=== PATIENT | female | born 1995 | race American Indian/Alaskan Native ===

== ENCOUNTER 2020-06-28 10:20 | Outpatient (CLI) | payer OTHER ==
[2020-06-28 11:05] VITALS: BP 135/81
== END 2020-06-28 12:00 | disposition home or self-care (01) ==
LOC: TRG 10:20 → APU 10:21 → TRG 12:00
PROVIDERS: ATTEND Obstetrics & Gynecology
DX: O47.1 False labor at or after 37 completed weeks of gestation (principal); Z3A.39 39 weeks gestation of pregnancy
CPT/HCPCS: 59025

== ENCOUNTER 2020-06-29 00:55 | Inpatient (IN) | payer OTHER ==
[2020-06-29] MEDS ORDERED: LIDOCAINE (2%) 20 MG/1 ML VIAL 20 ML MDV INFILTRATI ONE (03:29)
[2020-06-29] MEDS ORDERED: AMPICILLIN/NS 2 GM/100 ML 2 GM/100 ML BAG IV ONE (03:29)
[2020-06-29] MEDS ORDERED: BUTORPHANOL 2 MG/1 ML INJ IV PRN (03:29)
[2020-06-29] MEDS ORDERED: MINERAL OIL 30 ML ORAL LIQD PO PRN (03:29)
[2020-06-29] MEDS ORDERED: ONDANSETRON 4 MG/2 ML INJ IV PRN ×2 (03:29→16:36)
[2020-06-29] MEDS ORDERED: ePHEDrine SULFATE 50 MG/1 ML INJ IV PRN ×2 (03:29→08:30)
[2020-06-29] MEDS ORDERED: TERBUTALINE 1 MG/1 ML INJ SUB-Q PRN (03:29)
[2020-06-29] MEDS ORDERED: OXYTOCIN DRIP 30 UNITS/500 ML BAG IV SCH ×2 (04:00→17:00)
[2020-06-29] MEDS: LACTATED RINGERS 1,000 ML IV SCH ×2 (04:45→12:45)
[2020-06-29 05:04] LABS: Hematocrit 31.6 % (30.3-42.9); Hemoglobin 10.2 gm/dl (10.1-14.3); Mean Corpuscular HGB Conc 32 % (30-34); Mean Corpuscular Volume 80 fl (79-97); Platelet Count 155 K/mm3 (140-440); Red Blood Count 3.96 M/mm3 (3.65-5.03); Red Cell Distribution Width 17.1 % (13.2-15.2)
--- NOTE | 2020-06-29 08:05 | Anesthesia Consultation ---
Anesthesia Consult and Med Hx Date of service: 06/29/20 - Airway Anesthetic Teeth Evaluation: Good ROM Head & Neck: Adequate Mental/Hyoid Distance: Adequate Mallampati Class: Class II Intubation Access Assessment: Probably Good - Pulmonary Exam CTA: Yes - Cardiac Exam Cardiac Exam: RRR - Pre-Operative Health Status ASA Pre-Surgery Classification: ASA3 Proposed Anesthetic Plan: Epidural - Pulmonary Hx Asthma: No - Cardiovascular System Hx Hypertension: No - Central Nervous System Hx Seizures: No Hx Psychiatric Problems: No - Endocrine Hx Renal Disease: No Hx Non-Insulin Dependent Diabetes: Yes Hx Hypothyroidism: No Hx Hyperthyroidism: No - Hematic Hx Anemia: No Hx Sickle Cell Disease: No - Other Systems Hx Alcohol Use: No Hx Obesity: Yes
--- NOTE | 2020-06-29 08:11 | Progress Note ---
Labor Epidural - Labor Epidural Start Time: 07:45 Stop Time: 08:01 Performed by:: FLACO SONG Procedure: Patient is requesting epidural for labor pain. H&P, and labs reviewed. Procedure explained, questions answered, consent obtained. Patient in sitting position with blood pressure cuff and pulse ox on and working. Timeout performed immediately before start of procedure. Sterile betadine prep/drape. 3 mL 1% lidocaine skin wheal at L[3]-L[4]. 18-gauge Flipzu epidural needle advanced to [id number] with saline at 8 cm. Positive csf, dexmedetomidine 5 mcg administered, positive test dose for leg numbness. Epidural catheter advanced to [12] cm. RN instructed IT catheter and appropriate dosing. Sterile steri-strips and tegaderm applied, followed by tape reinforcement. Patient tolerated procedure well. Zaki ALCANTAR
[2020-06-29] MEDS ORDERED: NALOXONE 2 MG/2 ML INJ IV PRN (08:30)
[2020-06-29] MEDS: AMPICILLIN/NS 1 GM/50 ML 1 GM/50 ML BAG IV SCH ×2 (08:38→13:03)
[2020-06-29] MEDS ORDERED: fentaNYL-BUPIV 2 MCG/ML-0.125% 200 MCG/100 ML BAG EPIDURAL SCH (09:00)
--- NOTE | 2020-06-29 11:57 | Progress Note ---
Assessment and Plan A: IUP@39.5 wks GBS pos P: Cont monitoring Anticipate - Patient Problems (1) Term Current Visit: Yes Status: Acute (2) Positive GBS test Current Visit: Yes Status: Acute Subjective - Subjective Date of service: 06/29/20 Patient reports: movement normal Objective - Vital Signs Vital Signs: Vital Signs - 12hr 06/29/20 06/29/20 06/29/20 01:22 01:24 01:32 Temperature 98.7 F Pulse Rate 118 H 118 H 124 H Respiratory 18 Rate Blood Pressure 142/94 147/93 Blood Pressure 147/93 [Left] O2 Sat by Pulse 99 99 Oximetry 06/29/20 06/29/20 06/29/20 01:37 01:42 01:47 Temperature Pulse Rate 117 H 125 H 128 H Respiratory Rate Blood Pressure Blood Pressure [Left] O2 Sat by Pulse 99 99 99 Oximetry 06/29/20 06/29/20 06/29/20 01:52 04:16 04:21 Temperature Pulse Rate 121 H 102 H 111 H Respiratory Rate Blood Pressure 126/70 Blood Pressure [Left] O2 Sat by Pulse 98 100 99 Oximetry 06/29/20 06/29/20 06/29/20 04:26 04:31 04:36 Temperature Pulse Rate 117 H 126 H 117 H Respiratory Rate Blood Pressure Blood Pressure [Left] O2 Sat by Pulse 99 99 99 Oximetry 06/29/20 06/29/20 06/29/20 04:41 04:45 04:46 Temperature 97.9 F Pulse Rate 122 H 122 H Respiratory Rate Blood Pressure Blood Pressure [Left] O2 Sat by Pulse 99 100 Oximetry 06/29/20 06/29/20 06/29/20 04:51 04:56 05:01 Temperature Pulse Rate 109 H 105 H 101 H Respiratory Rate Blood Pressure Blood Pressure [Left] O2 Sat by Pulse 97 97 98 Oximetry 06/29/20 06/29/20 06/29/20 05:06 05:11 05:16 Temperature Pulse Rate 90 96 H 97 H Respiratory Rate Blood Pressure Blood Pressure [Left] O2 Sat by Pulse 97 99 99 Oximetry 06/29/20 06/29/20 06/29/20 05:21 05:26 05:31 Temperature Pulse Rate 108 H 97 H 96 H Respiratory Rate Blood Pressure Blood Pressure [Left] O2 Sat by Pulse 99 99 98 Oximetry 06/29/20 06/29/20 06/29/20 05:36 05:41 05:48 Temperature Pulse Rate 97 H 88 113 H Respiratory Rate Blood Pressure Blood Pressure [Left] O2 Sat by Pulse 96 99 98 Oximetry 06/29/20 06/29/20 06/29/20 05:53 05:56 05:58 Temperature Pulse Rate 101 H 81 78 Respiratory Rate Blood Pressure Blood Pressure [Left] O2 Sat by Pulse 96 94 96 Oximetry 06/29/20 06/29/20 06/29/20 06:03 06:08 06:13 Temperature Pulse Rate 109 H 117 H 101 H Respiratory Rate Blood Pressure Blood Pressure [Left] O2 Sat by Pulse 96 99 99 Oximetry 06/29/20 06/29/20 06/29/20 06:18 06:23 06:28 Temperature Pulse Rate 91 H 81 75 Respiratory Rate Blood Pressure Blood Pressure [Left] O2 Sat by Pulse 98 97 97 Oximetry 06/29/20 06/29/20 06/29/20 06:33 06:38 06:43 Temperature Pulse Rate 98 H 115 H 77 Respiratory Rate Blood Pressure Blood Pressure [Left] O2 Sat by Pulse 97 97 98 Oximetry 06/29/20 06/29/20 06/29/20 06:48 06:53 06:58 Temperature Pulse Rate 82 78 82 Respiratory Rate Blood Pressure Blood Pressure [Left] O2 Sat by Pulse 98 98 98 Oximetry 06/29/20 06/29/20 06/29/20 07:03 07:08 07:13 Temperature Pulse Rate 84 89 104 H Respiratory Rate Blood Pressure Blood Pressure [Left] O2 Sat by Pulse 97 98 99 Oximetry 06/29/20 06/29/20 06/29/20 07:18 07:23 07:28 Temperature Pulse Rate 116 H 89 117 H Respiratory Rate Blood Pressure Blood Pressure [Left] O2 Sat by Pulse 100 98 98 Oximetry 06/29/20 06/29/20 06/29/20 07:33 07:38 07:43 Temperature Pulse Rate 96 H 111 H 115 H Respiratory Rate Blood Pressure 146/90 Blood Pressure [Left] O2 Sat by Pulse 97 98 97 Oximetry 06/29/20 06/29/20 06/29/20 07:48 07:52 07:53 Temperature Pulse Rate 96 H 103 H 107 H Respiratory Rate Blood Pressure Blood Pressure [Left] O2 Sat by Pulse 98 0 L 99 Oximetry 06/29/20 06/29/20 06/29/20 07:58 08:00 08:03 Temperature Pulse Rate 108 H 108 H 113 H Respiratory Rate Blood Pressure 129/81 121/75 Blood Pressure [Left] O2 Sat by Pulse 98 99 Oximetry 06/29/20 06/29/20 06/29/20 08:06 08:08 08:09 Temperature Pulse Rate 105 H 103 H 100 H Respiratory Rate Blood Pressure 128/77 108/56 Blood Pressure [Left] O2 Sat by Pulse 99 Oximetry 06/29/20 06/29/20 06/29/20 08:12 08:13 08:15 Temperature Pulse Rate 80 76 69 Respiratory Rate Blood Pressure 103/56 103/57 Blood Pressure [Left] O2 Sat by Pulse 97 Oximetry 06/29/20 06/29/20 06/29/20 08:18 08:21 08:23 Temperature Pulse Rate 78 77 91 H Respiratory Rate Blood Pressure 93/52 100/58 Blood Pressure [Left] O2 Sat by Pulse 100 100 Oximetry 06/29/20 06/29/20 06/29/20 08:24 08:27 08:28 Temperature Pulse Rate 148 H 81 75 Respiratory Rate Blood Pressure 115/54 108/61 Blood Pressure [Left] O2 Sat by Pulse 100 Oximetry 06/29/20 06/29/20 06/29/20 08:30 08:33 08:36 Temperature 97.7 F Pulse Rate 76 73 75 Respiratory 20 Rate Blood Pressure 110/63 115/72 113/69 Blood Pressure [Left] O2 Sat by Pulse 99 100 Oximetry 06/29/20 06/29/20 06/29/20 08:38 08:39 08:42 Temperature Pulse Rate 76 71 77 Respiratory Rate Blood Pressure 119/70 116/69 Blood Pressure [Left] O2 Sat by Pulse 100 Oximetry 06/29/20 06/29/20 06/29/20 08:43 08:45 08:48 Temperature Pulse Rate 72 71 90 Respiratory Rate Blood Pressure 118/69 Blood Pressure [Left] O2 Sat by Pulse 100 98 Oximetry 06/29/20 06/29/20 06/29/20 08:53 08:58 09:03 Temperature Pulse Rate 83 84 76 Respiratory Rate Blood Pressure Blood Pressure [Left] O2 Sat by Pulse 99 99 98 Oximetry 06/29/20 06/29/20 06/29/20 09:08 09:13 09:17 Temperature Pulse Rate 83 77 83 Respiratory Rate Blood Pressure 122/74 Blood Pressure [Left] O2 Sat by Pulse 98 99 Oximetry 06/29/20 06/29/20 06/29/20 09:18 09:23 09:28 Temperature Pulse Rate 87 84 84 Respiratory Rate Blood Pressure Blood Pressure [Left] O2 Sat by Pulse 99 99 99 Oximetry 06/29/20 06/29/20 06/29/20 09:33 09:38 09:43 Temperature Pulse Rate 85 78 88 Respiratory Rate Blood Pressure Blood Pressure [Left] O2 Sat by Pulse 99 98 99 Oximetry 06/29/20 06/29/20 06/29/20 09:48 09:53 09:57 Temperature Pulse Rate 78 77 76 Respiratory Rate Blood Pressure 130/85 Blood Pressure [Left] O2 Sat by Pulse 98 99 93 Oximetry 06/29/20 06/29/20 06/29/20 09:58 10:03 10:08 Temperature Pulse Rate 79 77 82 Respiratory Rate Blood Pressure Blood Pressure [Left] O2 Sat by Pulse 94 98 98 Oximetry 06/29/20 06/29/20 06/29/20 10:13 10:17 10:18 Temperature Pulse Rate 85 90 95 H Respiratory Rate Blood Pressure 132/79 Blood Pressure [Left] O2 Sat by Pulse 98 99 Oximetry 06/29/20 06/29/20 06/29/20 10:23 10:28 10:33 Temperature Pulse Rate 84 85 108 H Respiratory Rate Blood Pressure Blood Pressure [Left] O2 Sat by Pulse 98 99 99 Oximetry 06/29/20 06/29/20 06/29/20 10:38 10:40 10:43 Temperature 97.8 F Pulse Rate 94 H 85 Respiratory Rate Blood Pressure Blood Pressure [Left] O2 Sat by Pulse 98 97 Oximetry 06/29/20 06/29/20 06/29/20 10:47 10:48 10:53 Temperature Pulse Rate 80 74 77 Respiratory Rate Blood Pressure 128/69 Blood Pressure [Left] O2 Sat by Pulse 97 98 Oximetry 06/29/20 06/29/20 06/29/20 10:58 11:03 11:08 Temperature Pulse Rate 87 79 106 H Respiratory Rate Blood Pressure Blood Pressure [Left] O2 Sat by Pulse 99 99 98 Oximetry 06/29/20 06/29/20 06/29/20 11:13 11:17 11:18 Temperature Pulse Rate 83 94 H 91 H Respiratory Rate Blood Pressure 125/75 Blood Pressure [Left] O2 Sat by Pulse 98 99 Oximetry 06/29/20 06/29/20 06/29/20 11:23 11:28 11:33 Temperature Pulse Rate 70 76 86 Respiratory Rate Blood Pressure Blood Pressure [Left] O2 Sat by Pulse 98 98 100 Oximetry 06/29/20 06/29/20 06/29/20 11:38 11:43 11:48 Temperature Pulse Rate 106 H 76 81 Respiratory Rate Blood Pressure Blood Pressure [Left] O2 Sat by Pulse 98 98 99 Oximetry 06/29/20 11:49 Temperature Pulse Rate 77 Respiratory Rate Blood Pressure 116/76 Blood Pressure [Left] O2 Sat by Pulse Oximetry - Exam Breasts: normal Abdomen: Present: normal appearance, soft, normal bowel sounds Vulva: both: normal Uterus: Present: normal, other (gravid) FHR: auscultation normal, category 1 Uterine Contraction Monitor Mode: External Cervical Dilatation: 7 Cervical Effacement Percentage: 90 station: -1 Uterine Contraction Frequency (min): q2-5 Uterine Contraction Pattern: Regular Uterine Tone Measurement Phase: Resting Uterine Contraction Intensity: Strong/Firm Extremities: normal - Labs Labs: Abnormal Labs 06/29/20 06/29/20 09:28 Unknown WBC 13.8 H MCH 26 L RDW 17.1 H POC Glucose 106 H Laboratory Results - last 24 hr 06/29/20 06/29/20 06/29/20 03:29 04:45 09:28 WBC RBC Hgb Hct MCV MCH MCHC RDW Plt Count POC Glucose 106 H Syphilis IgG Antibody Nonreactive Blood Type O POSITIVE Antibody Screen Negative 06/29/20 Unknown WBC 13.8 H RBC 3.96 Hgb 10.2 Hct 31.6 MCV 80 MCH 26 L MCHC 32 RDW 17.1 H Plt Count 155 POC Glucose Syphilis IgG Antibody Blood Type Antibody Screen
[2020-06-29] MEDS ORDERED: SODIUM CHLORIDE 0.9% 1000 ML 1,000 ML ONE (14:46)
[2020-06-29] MEDS ORDERED: SODIUM CHLORIDE 0.9% 1000 ML 1,000 ML IV ONE (15:00)
--- NOTE | 2020-06-29 15:30 | Progress Note ---
Assessment and Plan A: IUP@ 39.5 wks CAT II FHT p: O2 on, Pit is off Position changes in place Amnio infusion and IV bolus going Dr Joseph is aware - Patient Problems (1) Term Current Visit: Yes Status: Acute (2) Positive GBS test Current Visit: Yes Status: Acute Subjective - Subjective Date of service: 06/29/20 Patient reports: movement normal Objective - Vital Signs Vital Signs: Vital Signs - 12hr 06/29/20 06/29/20 06/29/20 04:16 04:21 04:26 Temperature Pulse Rate 102 H 111 H 117 H Respiratory Rate Blood Pressure 126/70 O2 Sat by Pulse 100 99 99 Oximetry 06/29/20 06/29/20 06/29/20 04:31 04:36 04:41 Temperature Pulse Rate 126 H 117 H 122 H Respiratory Rate Blood Pressure O2 Sat by Pulse 99 99 99 Oximetry 06/29/20 06/29/20 06/29/20 04:45 04:46 04:51 Temperature 97.9 F Pulse Rate 122 H 109 H Respiratory Rate Blood Pressure O2 Sat by Pulse 100 97 Oximetry 06/29/20 06/29/20 06/29/20 04:56 05:01 05:06 Temperature Pulse Rate 105 H 101 H 90 Respiratory Rate Blood Pressure O2 Sat by Pulse 97 98 97 Oximetry 06/29/20 06/29/20 06/29/20 05:11 05:16 05:21 Temperature Pulse Rate 96 H 97 H 108 H Respiratory Rate Blood Pressure O2 Sat by Pulse 99 99 99 Oximetry 06/29/20 06/29/20 06/29/20 05:26 05:31 05:36 Temperature Pulse Rate 97 H 96 H 97 H Respiratory Rate Blood Pressure O2 Sat by Pulse 99 98 96 Oximetry 06/29/20 06/29/20 06/29/20 05:41 05:48 05:53 Temperature Pulse Rate 88 113 H 101 H Respiratory Rate Blood Pressure O2 Sat by Pulse 99 98 96 Oximetry 06/29/20 06/29/20 06/29/20 05:56 05:58 06:03 Temperature Pulse Rate 81 78 109 H Respiratory Rate Blood Pressure O2 Sat by Pulse 94 96 96 Oximetry 06/29/20 06/29/20 06/29/20 06:08 06:13 06:18 Temperature Pulse Rate 117 H 101 H 91 H Respiratory Rate Blood Pressure O2 Sat by Pulse 99 99 98 Oximetry 06/29/20 06/29/20 06/29/20 06:23 06:28 06:33 Temperature Pulse Rate 81 75 98 H Respiratory Rate Blood Pressure O2 Sat by Pulse 97 97 97 Oximetry 06/29/20 06/29/20 06/29/20 06:38 06:43 06:48 Temperature Pulse Rate 115 H 77 82 Respiratory Rate Blood Pressure O2 Sat by Pulse 97 98 98 Oximetry 06/29/20 06/29/20 06/29/20 06:53 06:58 07:03 Temperature Pulse Rate 78 82 84 Respiratory Rate Blood Pressure O2 Sat by Pulse 98 98 97 Oximetry 06/29/20 06/29/20 06/29/20 07:08 07:13 07:18 Temperature Pulse Rate 89 104 H 116 H Respiratory Rate Blood Pressure O2 Sat by Pulse 98 99 100 Oximetry 06/29/20 06/29/20 06/29/20 07:23 07:28 07:33 Temperature Pulse Rate 89 117 H 96 H Respiratory Rate Blood Pressure O2 Sat by Pulse 98 98 97 Oximetry 06/29/20 06/29/20 06/29/20 07:38 07:43 07:48 Temperature Pulse Rate 111 H 115 H 96 H Respiratory Rate Blood Pressure 146/90 O2 Sat by Pulse 98 97 98 Oximetry 06/29/20 06/29/20 06/29/20 07:52 07:53 07:58 Temperature Pulse Rate 103 H 107 H 108 H Respiratory Rate Blood Pressure O2 Sat by Pulse 0 L 99 98 Oximetry 06/29/20 06/29/20 06/29/20 08:00 08:03 08:06 Temperature Pulse Rate 108 H 113 H 105 H Respiratory Rate Blood Pressure 129/81 121/75 128/77 O2 Sat by Pulse 99 Oximetry 06/29/20 06/29/20 06/29/20 08:08 08:09 08:12 Temperature Pulse Rate 103 H 100 H 80 Respiratory Rate Blood Pressure 108/56 103/56 O2 Sat by Pulse 99 Oximetry 06/29/20 06/29/20 06/29/20 08:13 08:15 08:18 Temperature Pulse Rate 76 69 78 Respiratory Rate Blood Pressure 103/57 93/52 O2 Sat by Pulse 97 100 Oximetry 06/29/20 06/29/20 06/29/20 08:21 08:23 08:24 Temperature Pulse Rate 77 91 H 148 H Respiratory Rate Blood Pressure 100/58 115/54 O2 Sat by Pulse 100 Oximetry 06/29/20 06/29/20 06/29/20 08:27 08:28 08:30 Temperature 97.7 F Pulse Rate 81 75 76 Respiratory 20 Rate Blood Pressure 108/61 110/63 O2 Sat by Pulse 100 99 Oximetry 06/29/20 06/29/20 06/29/20 08:33 08:36 08:38 Temperature Pulse Rate 73 75 76 Respiratory Rate Blood Pressure 115/72 113/69 O2 Sat by Pulse 100 100 Oximetry 06/29/20 06/29/20 06/29/20 08:39 08:42 08:43 Temperature Pulse Rate 71 77 72 Respiratory Rate Blood Pressure 119/70 116/69 O2 Sat by Pulse 100 Oximetry 06/29/20 06/29/20 06/29/20 08:45 08:48 08:53 Temperature Pulse Rate 71 90 83 Respiratory Rate Blood Pressure 118/69 O2 Sat by Pulse 98 99 Oximetry 06/29/20 06/29/20 06/29/20 08:58 09:03 09:08 Temperature Pulse Rate 84 76 83 Respiratory Rate Blood Pressure O2 Sat by Pulse 99 98 98 Oximetry 06/29/20 06/29/20 06/29/20 09:13 09:17 09:18 Temperature Pulse Rate 77 83 87 Respiratory Rate Blood Pressure 122/74 O2 Sat by Pulse 99 99 Oximetry 06/29/20 06/29/20 06/29/20 09:23 09:28 09:33 Temperature Pulse Rate 84 84 85 Respiratory Rate Blood Pressure O2 Sat by Pulse 99 99 99 Oximetry 06/29/20 06/29/20 06/29/20 09:38 09:43 09:48 Temperature Pulse Rate 78 88 78 Respiratory Rate Blood Pressure 130/85 O2 Sat by Pulse 98 99 98 Oximetry 06/29/20 06/29/20 06/29/20 09:53 09:57 09:58 Temperature Pulse Rate 77 76 79 Respiratory Rate Blood Pressure O2 Sat by Pulse 99 93 94 Oximetry 06/29/20 06/29/20 06/29/20 10:03 10:08 10:13 Temperature Pulse Rate 77 82 85 Respiratory Rate Blood Pressure O2 Sat by Pulse 98 98 98 Oximetry 06/29/20 06/29/20 06/29/20 10:17 10:18 10:23 Temperature Pulse Rate 90 95 H 84 Respiratory Rate Blood Pressure 132/79 O2 Sat by Pulse 99 98 Oximetry 06/29/20 06/29/20 06/29/20 10:28 10:33 10:38 Temperature Pulse Rate 85 108 H 94 H Respiratory Rate Blood Pressure O2 Sat by Pulse 99 99 98 Oximetry 06/29/20 06/29/20 06/29/20 10:40 10:43 10:47 Temperature 97.8 F Pulse Rate 85 80 Respiratory Rate Blood Pressure 128/69 O2 Sat by Pulse 97 Oximetry 06/29/20 06/29/20 06/29/20 10:48 10:53 10:58 Temperature Pulse Rate 74 77 87 Respiratory Rate Blood Pressure O2 Sat by Pulse 97 98 99 Oximetry 06/29/20 06/29/20 06/29/20 11:03 11:08 11:13 Temperature Pulse Rate 79 106 H 83 Respiratory Rate Blood Pressure O2 Sat by Pulse 99 98 98 Oximetry 06/29/20 06/29/20 06/29/20 11:17 11:18 11:23 Temperature Pulse Rate 94 H 91 H 70 Respiratory Rate Blood Pressure 125/75 O2 Sat by Pulse 99 98 Oximetry 06/29/20 06/29/20 06/29/20 11:28 11:33 11:38 Temperature Pulse Rate 76 86 106 H Respiratory Rate Blood Pressure O2 Sat by Pulse 98 100 98 Oximetry 06/29/20 06/29/20 06/29/20 11:43 11:48 11:49 Temperature Pulse Rate 76 81 77 Respiratory Rate Blood Pressure 116/76 O2 Sat by Pulse 98 99 Oximetry 06/29/20 06/29/20 06/29/20 11:53 11:58 12:03 Temperature Pulse Rate 93 H 80 80 Respiratory Rate Blood Pressure O2 Sat by Pulse 97 98 98 Oximetry 06/29/20 06/29/20 06/29/20 12:08 12:13 12:17 Temperature Pulse Rate 88 112 H 86 Respiratory Rate Blood Pressure 123/76 O2 Sat by Pulse 100 100 Oximetry 06/29/20 06/29/20 06/29/20 12:18 12:23 12:28 Temperature Pulse Rate 92 H 105 H 91 H Respiratory Rate Blood Pressure O2 Sat by Pulse 98 99 99 Oximetry 06/29/20 06/29/20 06/29/20 12:33 12:38 12:43 Temperature Pulse Rate 102 H 91 H 95 H Respiratory Rate Blood Pressure O2 Sat by Pulse 99 99 98 Oximetry 06/29/20 06/29/20 06/29/20 12:48 12:53 12:58 Temperature Pulse Rate 86 92 H 82 Respiratory Rate Blood Pressure 120/79 O2 Sat by Pulse 100 99 100 Oximetry 06/29/20 06/29/20 06/29/20 13:03 13:07 13:08 Temperature 97.7 F Pulse Rate 83 85 Respiratory Rate Blood Pressure O2 Sat by Pulse 100 100 Oximetry 06/29/20 06/29/20 06/29/20 13:13 13:18 13:23 Temperature Pulse Rate 91 H 90 78 Respiratory Rate Blood Pressure 116/78 O2 Sat by Pulse 100 100 100 Oximetry 06/29/20 06/29/20 06/29/20 13:28 13:33 13:38 Temperature Pulse Rate 74 78 78 Respiratory Rate Blood Pressure O2 Sat by Pulse 100 100 100 Oximetry 06/29/20 06/29/20 06/29/20 13:43 13:47 13:48 Temperature Pulse Rate 80 73 73 Respiratory Rate Blood Pressure 123/74 O2 Sat by Pulse 100 100 Oximetry 06/29/20 06/29/20 06/29/20 13:53 13:58 14:03 Temperature Pulse Rate 74 84 116 H Respiratory Rate Blood Pressure O2 Sat by Pulse 100 100 100 Oximetry 06/29/20 06/29/20 06/29/20 14:08 14:13 14:17 Temperature Pulse Rate 105 H 92 H 95 H Respiratory Rate Blood Pressure 122/79 O2 Sat by Pulse 100 100 Oximetry 06/29/20 06/29/20 06/29/20 14:18 14:23 14:28 Temperature Pulse Rate 89 87 94 H Respiratory Rate Blood Pressure O2 Sat by Pulse 99 99 98 Oximetry 06/29/20 06/29/20 06/29/20 14:33 14:38 14:43 Temperature Pulse Rate 97 H 105 H 98 H Respiratory Rate Blood Pressure O2 Sat by Pulse 99 99 99 Oximetry 06/29/20 06/29/20 06/29/20 14:47 14:48 14:53 Temperature Pulse Rate 78 99 H 126 H Respiratory Rate Blood Pressure 136/76 O2 Sat by Pulse 100 98 Oximetry 06/29/20 06/29/20 06/29/20 14:54 14:58 15:03 Temperature Pulse Rate 116 H 109 H 113 H Respiratory Rate Blood Pressure O2 Sat by Pulse 94 100 100 Oximetry 06/29/20 06/29/20 06/29/20 15:08 15:13 15:17 Temperature 97.9 F Pulse Rate 88 81 82 Respiratory Rate Blood Pressure 124/76 O2 Sat by Pulse 100 100 Oximetry 06/29/20 06/29/20 15:18 15:23 Temperature Pulse Rate 75 83 Respiratory Rate Blood Pressure O2 Sat by Pulse 100 100 Oximetry - Exam Breasts: normal Abdomen: Present: normal appearance, soft Vulva: both: normal FHR: category 2 Uterine Contraction Monitor Mode: Internal Cervical Dilatation: 9 Cervical Effacement Percentage: 100 station: -1 Uterine Contraction Frequency (min): q3-4 Uterine Contraction Pattern: Regular Uterine Tone Measurement Phase: Resting Uterine Contraction Intensity: Strong/Firm Extremities: normal - Labs Labs: Abnormal Labs 06/29/20 06/29/20 09:28 Unknown WBC 13.8 H MCH 26 L RDW 17.1 H POC Glucose 106 H Laboratory Results - last 24 hr 06/29/20 06/29/20 06/29/20 03:29 04:45 09:28 WBC RBC Hgb Hct MCV MCH MCHC RDW Plt Count POC Glucose 106 H Syphilis IgG Antibody Nonreactive Blood Type O POSITIVE Antibody Screen Negative 06/29/20 Unknown WBC 13.8 H RBC 3.96 Hgb 10.2 Hct 31.6 MCV 80 MCH 26 L MCHC 32 RDW 17.1 H Plt Count 155 POC Glucose Syphilis IgG Antibody Blood Type Antibody Screen
--- NOTE | 2020-06-29 16:35 | Procedure Note ---
OB Delivery Note - Delivery Date of Delivery: 06/29/20 Surgeon: DORIS CARTER Estimated blood loss: 200cc - Vaginal Delivery presentation: vertex Delivery position: OA Route of delivery: vacuum extraction Indicators for instrumentation: nonreassuring FHR tracing Delivery placenta: spontaneous Delivery cord: 3 umbilical vessels Episiotomy: none Delivery laceration: 1st degree, other (and periurethral lac. ) Delivery repair: vicryl, other (2-0 Vicryl) Anesthesia: epidural Delivery comments: Due to nonreassuring heart tracing, patient verbally consented for vacuum- assisted vaginal delivery. Patient agreed. Risk, benefits, and alternatives discussed with the patient. Patient had brought the vertex to +2 station. Kiwi vacuum was applied to the vertex and pumped up to the green section. Then in concert with maternal contractions, gentle traction was applied as patient pushed. The head was successfully delivered with the first set of pushes. No pop offs were noted. Kiwi vacuum was then removed. Anterior shoulder delivered without difficulty. Baby bulb suctioned at the perineum and again after delivery. Cord was clamped and cut. Baby to the warmer. Placenta delivered spontaneously and was delivered in its entirety. Lacerations were repaired. Good hemostasis throughout. Mother and baby stable. - A at 1 minute: 7 at 5 minutes: 9 Gender: Female
[2020-06-29] MEDS ORDERED: diphenhydrAMINE 25 MG CAP PO PRN (16:36)
[2020-06-29] MEDS ORDERED: METHYLERGONOVINE MALEATE 0.2 MG/ML VIAL IM PRN (16:36)
[2020-06-29] MEDS ORDERED: PROMETHAZINE 25 MG TAB PO PRN (16:36)
[2020-06-29] MEDS ORDERED: PROMETHAZINE 25 MG RECT SUPP PR PRN (16:36)
[2020-06-29] MEDS ORDERED: BENZOCAINE/MENTHOL 20/0.5% TOP SPRAY 56 GM TP PRN (16:36)
[2020-06-29] MEDS ORDERED: LANOLIN/ZINC/DIMETHICONE (LANSINOH) 7 GM TP PRN ×2 (16:36)
[2020-06-29] MEDS ORDERED: MAGNESIUM HYDROXIDE (MOM) ORAL LIQD UDC PO PRN (16:36)
[2020-06-29] MEDS ORDERED: WITCH HAZEL/ GLYCERIN PAD TP PRN (16:36)
[2020-06-29] MEDS: IBUPROFEN 600 MG TAB PO SCH ×2 (18:56→23:31)
[2020-06-29] MEDS: oxyCODONE /ACETAMINOPHEN 5-325MG TAB PO PRN (19:48)
--- NOTE | 2020-06-29 20:22 | History and Physical Report ---
History of Present Illness Date of examination: 06/29/20 Date of admission: 06/29/20 03:29 Chief complaint: "I'm in labor" History of present illness: 24 y/o AA female presented to [facility] @ 39.5 wks in labor. Pt denied VB and admitted to active FM. She initiated her pnc at the [facility] @ 7wks 5 days and latter transferred her care to [facility] r/t insurance issues. Her preg was complicated by vag spotting in early preg, GDM diet controlled, anemia, and anxiety. She reports a neg surgical/social hx and a family hx of DM and hypothyroidism. Pt' GBS is pos. She was admitted to L&D for delivery. Past History Past Medical History: other (GDM, ANXIETY, ANEMIA) Past Surgical History: no surgical history Family/Genetic History: diabetes, other (HYPOTHYROIDISM) Social history: no significant social history, full code - Obstetrical History Expected Date of Delivery: 07/01/20 Actual Gestation: 39 Week(s) 5 Day(s) : 1 Medications and Allergies Allergies Allergy/AdvReac Type Severity Reaction Status Date / Time No Known Allergies Allergy Unverified 06/28/20 11:47 Home Medications Medication Instructions Recorded Confirmed Last Taken Type No Known Home Medications [No 06/29/20 06/29/20 Unknown History Reported Home Medications] Active Meds: Active Medications Benzocaine/Menthol (Dermoplast) 1 spray TP PRN PRN PRN Reason: Episiotomy Pain Bisacodyl (Dulcolax) 10 mg MO BID PRN PRN Reason: Constipation Butorphanol Tartrate (Stadol) 2 mg IV Q2H PRN PRN Reason: Pain , Severe (7-10) Last Admin: 06/29/20 04:48 Dose: 2 mg Documented by: Diphenhydramine HCl (Benadryl) 25 mg PO Q6H PRN PRN Reason: Itching Ephedrine Sulfate (Ephedrine Sulfate) 10 mg IV Q2M PRN PRN Reason: Hypotension Lactated Ringer's (Lactated Ringers) 1,000 mls @ 125 mls/hr IV DIRECT FLAVIO Last Admin: 06/29/20 12:45 Dose: 125 mls/hr Documented by: Oxytocin/Sodium Chloride (Pitocin/Ns 30 Unit/500ml) 30 units in 500 mls @ 40 mls/hr IV TITR FLAVIO; Protocol Last Admin: 06/29/20 11:14 Dose: 2 ml/hr, 2 mls/hr Documented by: Fentanyl/Bupivacaine/Sodium Chlor (Fentanyl-Bupiv 2 Mcg/Ml-0.125%) 200 mcg in 100 mls @ 2 mls/hr EPIDURAL TITR FLAVIO; Protocol Last Admin: 06/29/20 10:05 Dose: 2 mls/hr Documented by: Ampicillin Sodium (Ampicillin/Ns 1 Gm/50 Ml) 1 gm in 50 mls @ 100 mls/hr IV Q4H FLAVIO; Protocol Last Admin: 06/29/20 13:03 Dose: 100 mls/hr Documented by: Oxytocin/Sodium Chloride (Pitocin/Ns 30 Unit/500ml) 30 units in 500 mls @ 40 mls/hr IV TITR FLAVIO; Protocol Ibuprofen (Ibuprofen) 600 mg PO Q6HR FLAVIO Last Admin: 06/29/20 18:56 Dose: 600 mg Documented by: Magnesium Hydroxide (Milk Of Magnesia) 30 ml PO HS PRN PRN Reason: Constipation Methylergonovine Maleate (Methergine) 0.2 mg IM Q4H PRN PRN Reason: Uterine Bleeding Mineral Oil (Mineral Oil) 30 ml PO QHS PRN PRN Reason: Constipation Multi-Ingredient Ointment (Lansinoh) 1 applic TP PRN PRN PRN Reason: Sore Nipples Multi-Ingredient Ointment (Lansinoh) 1 applic TP PRN PRN PRN Reason: dryness/cracking Naloxone HCl (Naloxone) 0.2 mg IV Q5M PRN PRN Reason: Respiratory sedation Ondansetron HCl (Zofran) 4 mg IV Q8H PRN PRN Reason: Nausea And Vomiting Last Admin: 06/29/20 08:17 Dose: 4 mg Documented by: Ondansetron HCl (Zofran) 4 mg IV Q8H PRN PRN Reason: Nausea And Vomiting Oxycodone/Acetaminophen (Percocet 5/325) 1 tab PO Q6H PRN PRN Reason: Pain, Moderate (4-6) Last Admin: 06/29/20 19:48 Dose: 1 tab Documented by: Promethazine HCl (Phenergan) 25 mg MO Q6H PRN PRN Reason: Nausea And Vomiting Promethazine HCl (Phenergan) 25 mg PO Q6H PRN PRN Reason: Nausea And Vomiting Sodium Chloride (Sodium Chloride Flush Syringe 10 Ml) 10 ml IV PRN NR Stop: 06/30/20 16:59 Terbutaline Sulfate (Brethine) 0.25 mg SUB-Q ONCE PRN PRN Reason: Hyperstimulation/Hypertonicity Witch Elena/Glycerin (Tucks Pad) 1 each TP PRN PRN PRN Reason: Hemorrhoid/cleansing/soothing Review of Systems All systems: negative Eyes: deferred Ears, nose, mouth and throat: deferred Breasts: normal - Vital Signs Vital signs: Vital Signs Pulse BP 118 H 142/94 06/29/20 01:22 06/29/20 01:22 Temp Pulse Resp BP Pulse Ox 99.5 F 110 H 18 142/94 100 06/29/20 18:30 06/29/20 18:30 06/29/20 18:56 06/29/20 18:30 06/29/20 18:30 - Physical Exam Breasts: Positive: normal Abdomen: Positive: normal appearance, soft, normal bowel sounds, other (gravid) Vulva: both: normal Vagina: Positive: normal moisture Uterus: Positive: enlarged, normal contour, other (gravid) Adnexa: both: normal Anus/Rectum: Positive: normal perianal skin Extremities: Positive: normal - Obstetrical FHR: auscultation normal, category 1 Uterine Contraction Monitor Mode: External Cervical Dilatation: 4 Cervical Effacement Percentage: 80 station: -1 Uterine Contraction Frequency (min): q3-5 Uterine Contraction Pattern: Irregular Uterine Tone Measurement Phase: Resting Uterine Contraction Intensity: Mild Results Result Diagrams: 06/29/20 Unknown Abnormal lab results 06/29/20 06/29/20 Range/Units 09:28 Unknown WBC 13.8 H (4.5-11.0) K/mm3 MCH 26 L (28-32) pg RDW 17.1 H (13.2-15.2) % POC Glucose 106 H (70-105) mg/dL All other labs normal. Assessment and Plan A: IUP@ 39.5 wks srom cl fluid GDM diet controlled, anxiety GBS pos P: Admit to L&D Continuous monitoring GBS prophylaxis FSBS AC & HS Pain med prn/Epidural Anticipate - Patient Problems (1) Term Current Visit: Yes Status: Acute (2) Positive GBS test Current Visit: Yes Status: Acute
[2020-06-30] MEDS: oxyCODONE /ACETAMINOPHEN 5-325MG TAB PO PRN ×2 (05:38→13:01)
[2020-06-30 05:50] LABS: Hematocrit 29.4 % (30.3-42.9); Hemoglobin 9.4 gm/dl (10.1-14.3)
--- NOTE | 2020-06-30 10:38 | Discharge Summary ---
Providers - Providers Date of Admission: 06/29/20 03:29 Date of discharge: 06/30/20 Attending physician: RANDA MONCADA MD Primary care physician: RANDA MONCADA MD Hospitalization Reason for admission: active labor Delivery: Episiotomy: none Laceration: 1st degree (healing as expected) Other procedures: none complications: none Discharge diagnosis: IUP at term delivered, other (anemia) baby: female Hospital course: See admission H & P; OB progress notes and PP progress notes Condition at discharge: Good Disposition: DC-01 TO HOME OR SELFCARE - Discharge Diagnoses (1) Status post normal vaginal delivery Status: Acute (2) Anemia Status: Acute Qualifiers: Anemia type: iron deficiency Comment: Asymtomatic Plan - Provider Discharge Summary Activity: routine, no sex for 6 weeks, no heavy lifting 4 weeks, no strenuous exercise Diet: other (Iron rich diet) Instructions: routine Additional instructions: [] Smoking cessation referral if applicable(refer to patient education folder for contact #) [] Refer to [facility]'s [facility] Booklet Call your doctor immediately for: * Fever > 100.5 * Heavy vaginal bleeding ( >1 pad per hour) * Severe persistent headache * Shortness of breath * Reddened, hot, painful area to leg or breast * Drainage or odor from incision. * Keep laceration site clean and dry at all times and follow doctor's instructions regarding bathing/showering - Follow up plan Follow up: RANDA MONCADA MD [Primary Care Provider] - 6 Weeks
[2020-06-30] MEDS ORDERED: BUTALB/ACETAMINOPHEN/CAFFEINE TAB PO PRN (12:58)
[2020-06-30] MEDS ORDERED: NEOSTIGMINE 2 MG, ATROPINE 1 MG in SODIUM CHLORIDE 0.9% 100 ML IV SCH (13:00)
[2020-06-30] MEDS ORDERED: SODIUM CHLORIDE 0.9% IV SCH (14:00)
[2020-06-30] MEDS ORDERED: NEOSTIGMINE IV SCH (14:00)
[2020-06-30] MEDS ORDERED: ATROPINE IV SCH (14:00)
--- NOTE | 2020-06-30 14:00 | Post Anesthesia Evaluation ---
- Post Anesthesia Evaluation Patient Participated: Yes Airway Patent: Yes Stable Respiratory Function: Yes Nausea/Vomiting: No Temp > 96.8F: Yes Pain Manageable: Yes Adequeate Hydration: Yes Anesthesia Complications: Yes (headache) Block Receding Appropriately: Yes Other Comments: c/o headache, slight postural component, not photosensitive, no s&s infection or fever. Neck muscular stiffness, difficulty turning head. Discussed possibility of tension headache on top of PDPH. Encouraged heat, stretching, massage. Given history of wet tap will treat with one dose neostigmine/atropine before d/c. Patient strongly wants to go home, does not want blood patch at this time. Instructed to return to ER for worsening symptoms , headache that is postural with photosensitivity.
[2020-06-30 18:02] VITALS: BP 136/96
== END 2020-06-30 18:47 | disposition home or self-care (01) | DRG 807 ==
LOC: TRG 00:55 → APU 01:02 → TRG 03:29 → LD 03:29 → TRG 06:24 → APU 06:24 → OB 18:33
PROVIDERS: ADMIT Obstetrics & Gynecology; ATTEND Obstetrics & Gynecology
PROC: 10D07Z6 Extraction of Products of Conception, Vacuum, Via Natural or Artificial Opening (ICD-10-PCS; principal; 2020-06-29)
PROC: 0HQ9XZZ Repair Perineum Skin, External Approach (ICD-10-PCS; 2020-06-29)
PROC: 3E0R3BZ Introduction of Anesthetic Agent into Spinal Canal, Percutaneous Approach (ICD-10-PCS; 2020-06-29)
PROC: 00HU33Z Insertion of Infusion Device into Spinal Canal, Percutaneous Approach (ICD-10-PCS; 2020-06-29)
PROC: 3E0E7KZ Introduction of Other Diagnostic Substance into Products of Conception, Via Natural or Artificial Opening (ICD-10-PCS; 2020-06-29)
DX: O76 Abnormality in fetal heart rate and rhythm complicating labor and delivery (principal); Z37.0 Single live birth; O99.824 Streptococcus B carrier state complicating childbirth; Z20.828 Contact with and (suspected) exposure to other viral communicable diseases; F41.9 Anxiety disorder, unspecified; D50.8 Other iron deficiency anemias; O99.344 Other mental disorders complicating childbirth; O24.420 Gestational diabetes mellitus in childbirth, diet controlled; O99.214 Obesity complicating childbirth; E66.9 Obesity, unspecified; O70.0 First degree perineal laceration during delivery; Z3A.39 39 weeks gestation of pregnancy; Z83.3 Family history of diabetes mellitus
CPT/HCPCS: 36415; 59025; 82962; 85014; 85018; 85027; 86592; 86850; 86900; 86901; G0378; J0290; J0461; J0595; J2405; J2590; J2710; J7030; J7120; U0003